=== PATIENT | male | born 1990 | race Caucasian/White ===

== ENCOUNTER 2019-01-09 23:48 | Emergency (ER) | payer SELFPAY ==
[~2019-01-09] VITALS: Ht 177.8 cm; Wt 81.6 kg
[2019-01-10 00:21] LABS: BILIRUBIN NEGATIVE (NEGATIVE); BLOOD TRACE-INTACT (NEGATIVE); CLARITY SL CLOUDY (CLEAR); COLOR YELLOW (YELLOW); GLUCOSE NEGATIVE (NEGATIVE); KETONE NEGATIVE (NEGATIVE); LEUKO ESTERASE NEGATIVE (NEGATIVE); NITRITE NEGATIVE (NEGATIVE); SPECIFIC GRAVITY >= 1.030 (1.005-1.030); UROBILINOGEN 0.2 E.U./dl (0.2-1.0)
[2019-01-10 00:31] LABS: BASO % 0.2 % (0.0-1.0); EOS # 0.1 10*3/uL (0.0-0.4); EOS % 1.2 % (1.0-4.0); HEMATOCRIT 45.4 % (42.0-52.0); HEMOGLOBIN 15.3 g/dl (14.0-18.0); LYMPH # 1.2 10*3/uL (1.3-4.4); LYMPH % 20.8 % (27.0-41.0); MEAN CELL VOLUME 87.3 fl (80.0-94.0); MEAN CORPUSCULAR HGB 29.4 pg (27.0-31.0); MEAN CORPUSCULAR HGB CONC 33.7 g/dl (33.0-37.0); MEAN PLATELET VOLUME 9.7 fl (9.6-12.3); MONO # 0.4 10*3/uL (0.1-1.0); MONO % 7.3 % (3.0-9.0); NEUT # 3.9 10*3/uL (2.3-7.9); NEUT % 70.1 % (47.0-73.0); PLATELET COUNT AUTOMATED 201 10*3/uL (130-400); RED CELL DISTRI WIDTH 12.1 % (0-14.5); WHITE BLOOD COUNT 5.6 10*3/uL (4.8-10.8)
[2019-01-10 00:46] LABS: ALKALINE PHOSPHATASE 67 U/L (45-117); BUN 12 mg/dl (7-24); CHLORIDE 109 mmol/L (98-107); CREATININE 1.24 mg/dL (0.70-1.30); LIPASE 220 U/L (73-393); POTASSIUM 3.9 mmol/L (3.5-5.1); SGOT/AST 17 IU/L (3-35); SGPT/ALT 28 U/L (12-78); SODIUM 140 mmol/L (136-145); TOTAL PROTEIN 7.6 gm/dL (6.4-8.2)
[2019-01-10 00:48] LABS: MUCOUS TRACE; WBC 0-2 wbc/hpf (0-5)
[2019-01-10] MEDS ORDERED: DICYCLOMINE HYD20 MG PO (01:52)
== END 2019-01-10 02:19 | disposition home or self-care (01) ==
LOC: ED 23:48
PROVIDERS: Emergency Medicine Emergency Medical Services
DX: K80.70 Calculus of gallbladder and bile duct without cholecystitis without obstruction (principal)

== ENCOUNTER 2019-03-14 06:36 | Emergency (ER) | payer SELFPAY ==
[~2019-03-14] VITALS: Ht 180.3 cm; Wt 86.2 kg
[~2019-03-14 06:36] MED LIST: DICYCLOMINE HYD20 MG PO
[2019-03-14 07:07] LABS: BASO % 0.3 % (0.0-1.0); EOS # 0.1 10*3/uL (0.0-0.4); EOS % 1.3 % (1.0-4.0); HEMATOCRIT 42.5 % (42.0-52.0); HEMOGLOBIN 14.8 g/dl (14.0-18.0); LYMPH # 1.5 10*3/uL (1.3-4.4); LYMPH % 24.7 % (27.0-41.0); MEAN CELL VOLUME 85.7 fl (80.0-94.0); MEAN CORPUSCULAR HGB 29.8 pg (27.0-31.0); MEAN CORPUSCULAR HGB CONC 34.8 g/dl (33.0-37.0); MEAN PLATELET VOLUME 9.6 fl (9.6-12.3); MONO # 0.5 10*3/uL (0.1-1.0); MONO % 7.7 % (3.0-9.0); NEUT % 65.8 % (47.0-73.0); PLATELET COUNT AUTOMATED 196 10*3/uL (130-400); RED BLOOD COUNT 4.96 10*6/uL (4.50-5.90); RED CELL DISTRI WIDTH 12.8 % (0-14.5); WHITE BLOOD COUNT 6.1 10*3/uL (4.8-10.8)
[2019-03-14 07:23] LABS: ALBUMIN 3.9 gm/dl (3.1-4.5); ALKALINE PHOSPHATASE 69 U/L (45-117); BUN 13 mg/dl (7-24); CHLORIDE 107 mmol/L (98-107); CREATININE 1.15 mg/dL (0.70-1.30); LIPASE 215 U/L (73-393); POTASSIUM 3.6 mmol/L (3.5-5.1); SGOT/AST 13 IU/L (3-35); SGPT/ALT 30 U/L (12-78); SODIUM 140 mmol/L (136-145); TOTAL PROTEIN 7.6 gm/dL (6.4-8.2)
[2019-03-14 07:50] LABS: BILIRUBIN NEGATIVE (NEGATIVE); BLOOD NEGATIVE (NEGATIVE); CLARITY CLEAR (CLEAR); COLOR YELLOW (YELLOW); GLUCOSE NEGATIVE (NEGATIVE); KETONE NEGATIVE (NEGATIVE); LEUKO ESTERASE NEGATIVE (NEGATIVE); NITRITE NEGATIVE (NEGATIVE); SPECIFIC GRAVITY >= 1.030 (1.005-1.030); UROBILINOGEN 0.2 E.U./dl (0.2-1.0)
[2019-03-14 08:02] LABS: BACTERIA 2+; MUCOUS 1+; WBC 0-2 wbc/hpf (0-5)
== END 2019-03-14 09:54 | disposition home or self-care (01) ==
LOC: ED 06:36
PROVIDERS: Emergency Medicine
DX: K80.20 Calculus of gallbladder without cholecystitis without obstruction (principal)

== ENCOUNTER 2019-03-19 05:17 | Emergency (ER) | payer SELFPAY ==
[~2019-03-19] VITALS: Wt 86.2 kg
[2019-03-19 06:02] LABS: BASO % 0.4 % (0.0-1.0); EOS # 0.1 10*3/uL (0.0-0.4); EOS % 1.4 % (1.0-4.0); HEMATOCRIT 44.9 % (42.0-52.0); HEMOGLOBIN 15.4 g/dl (14.0-18.0); LYMPH # 1.7 10*3/uL (1.3-4.4); MEAN CELL VOLUME 85.7 fl (80.0-94.0); MEAN CORPUSCULAR HGB 29.4 pg (27.0-31.0); MEAN CORPUSCULAR HGB CONC 34.3 g/dl (33.0-37.0); MEAN PLATELET VOLUME 9.6 fl (9.6-12.3); MONO # 0.4 10*3/uL (0.1-1.0); MONO % 7.6 % (3.0-9.0); NEUT # 3.5 10*3/uL (2.3-7.9); NEUT % 61.2 % (47.0-73.0); PLATELET COUNT AUTOMATED 216 10*3/uL (130-400); RED BLOOD COUNT 5.24 10*6/uL (4.50-5.90); RED CELL DISTRI WIDTH 12.7 % (0-14.5); WHITE BLOOD COUNT 5.7 10*3/uL (4.8-10.8)
[2019-03-19 06:05] LABS: ALBUMIN 4.2 gm/dl (3.1-4.5); ALKALINE PHOSPHATASE 71 U/L (45-117); BUN 10 mg/dl (7-24); CHLORIDE 108 mmol/L (98-107); CREATININE 1.27 mg/dL (0.70-1.30); LIPASE 216 U/L (73-393); POTASSIUM 3.4 mmol/L (3.5-5.1); SGOT/AST 18 IU/L (3-35); SGPT/ALT 29 U/L (12-78); SODIUM 142 mmol/L (136-145); TOTAL PROTEIN 7.7 gm/dL (6.4-8.2)
[2019-03-19 06:48] LABS: ACT PARTIAL THROMBO TIME 26.5 SECONDS (20.0-32.1); INTERNATIONAL NORM RATIO 0.9 (2.0-3.5)
[2019-03-19 07:25] LABS: BILIRUBIN NEGATIVE (NEGATIVE); BLOOD NEGATIVE (NEGATIVE); CLARITY CLOUDY (CLEAR); COLOR YELLOW (YELLOW); GLUCOSE NEGATIVE (NEGATIVE); KETONE TRACE (NEGATIVE); LEUKO ESTERASE NEGATIVE (NEGATIVE); NITRITE NEGATIVE (NEGATIVE); PH 7.5 (5.0-9.0); UROBILINOGEN 0.2 E.U./dl (0.2-1.0)
[2019-03-19] MEDS ORDERED: NORCO 10-325 T1 EACH PO (09:08)
[2019-04-05] MEDS ORDERED: NORCO 5-325 TA1 EACH PO (11:17)
== END 2019-03-19 09:13 | disposition home or self-care (01) ==
LOC: ED 05:17
PROVIDERS: Family Medicine
DX: K80.20 Calculus of gallbladder without cholecystitis without obstruction (principal)

== ENCOUNTER → 2019-03-30 | Outpatient (CLI) | payer SELFPAY ==
[~2019-03-30] MED LIST changes: +NORCO 10-325 T1 EACH PO; +NORCO 5-325 TA1 EACH PO
== END | disposition home or self-care (01) ==
LOC: LAB 13:45
DX: K80.80 Other cholelithiasis without obstruction (principal)

== ENCOUNTER → 2019-04-05 | Day surgery (SDC) | payer SELFPAY ==
[2019-03-30 14:03] VITALS: BP 117/81
[~2019-04-05] VITALS: Ht 180.3 cm; Wt 85.3 kg
[2019-04-05 08:41] VITALS: BP 117/81
[2019-04-05 11:08] VITALS: BP 133/92
[2019-04-05 11:25] VITALS: BP 119/83
[2019-04-05 11:40] VITALS: BP 128/86
[2019-04-05 11:53] VITALS: BP 125/84
[2019-04-05 12:10] VITALS: BP 118/82
== END | disposition home or self-care (01) ==
LOC: SDC 03-30 13:15
DX: K80.10 Calculus of gallbladder with chronic cholecystitis without obstruction (principal); Z98.890 Other specified postprocedural states